=== PATIENT | male | born 1970 | race Caucasian/White ===

== ENCOUNTER 2024-02-21 13:38 | Outpatient (CLI) | payer BC | END 2024-02-21 13:39 | disposition home or self-care (01) | LOC: CSHWCC 13:38 | PROVIDERS: ATTEND Nurse Practitioner Family | DX: T81.32XD Disruption of internal operation (surgical) wound, not elsewhere classified, subsequent encounter (principal) | CPT/HCPCS: 11042 ==

== ENCOUNTER 2024-03-07 16:05 | Outpatient (CLI) | payer BC | END 2024-03-07 16:06 | disposition home or self-care (01) | LOC: CSHWCC 16:05 | PROVIDERS: ATTEND Nurse Practitioner Family | DX: T81.32XD Disruption of internal operation (surgical) wound, not elsewhere classified, subsequent encounter (principal) | CPT/HCPCS: 97597 ==

== ENCOUNTER 2024-03-15 14:28 | Outpatient (CLI) | payer BC | END 2024-03-15 14:29 | disposition home or self-care (01) | LOC: CSHWCC 14:28 | PROVIDERS: ATTEND Nurse Practitioner Family | DX: T81.32XD Disruption of internal operation (surgical) wound, not elsewhere classified, subsequent encounter (principal) | CPT/HCPCS: 99212; G0463 ==